=== PATIENT | female | born 1970 | race Caucasian/White ===

== ENCOUNTER → 2018-10-18 | Outpatient (CLI) | payer OTHER ==
--- NOTE | 2018-10-18 15:18 | XR ---
Left knee HISTORY: Left knee pain 3 views of the left knee There is joint space loss especially in the medial compartment with minimal spurring. Alignment, bone mineralization are normal. No evident joint effusion. IMPRESSION: Suspect some mild osteoarthritis.
== END | disposition home or self-care (01) ==
LOC: RADXRMAIN 12:01
PROVIDERS: ATTEND Family Medicine
DX: M25.562 Pain in left knee (principal)

== ENCOUNTER → 2020-12-14 | Outpatient (CLI) | payer OTHER ==
--- NOTE | 2020-12-18 10:19 | MM ---
Reason for exam: screening (asymptomatic). History: Family history of breast cancer in 2 cousins. Took hormonal contraceptives for 2 months. Physical Findings: A clinical breast exam by your physician is recommended on an annual basis and results should be correlated with mammographic findings. MG 3D Screening Mammo W/Cad Bilateral CC and MLO view(s) were taken. No prior studies available for comparison. The breast tissue is heterogeneously dense. This may lower the sensitivity of mammography. Partially obscured nodularity anterior right CC view. Benign foci of fat necrosis calcifications on the left. Central and lateral asymmetric densities left CC view incompletely disperse on 3D. ASSESSMENT: Incomplete: need additional imaging evaluation, BI-RAD 0 RECOMMENDATION: Special view mammogram of both breasts. (3D) If lesion persists on supplemental views, image directed ultrasound is recommended. [facility] will attempt to contact patient to return for supplemental views and ultrasound if indicated.
== END | disposition home or self-care (01) ==
LOC: RADMAMWWP 15:46
PROVIDERS: ATTEND Obstetrics & Gynecology
DX: Z12.31 Encounter for screening mammogram for malignant neoplasm of breast (principal)
CPT/HCPCS: 77063; 77067

== ENCOUNTER → 2020-12-24 | Outpatient (CLI) | payer OTHER ==
--- NOTE | 2020-12-25 08:44 | MM ---
Reason for exam: additional evaluation requested from abnormal screening. Last mammogram was performed less than 1 month ago. History: Family history of breast cancer in 2 cousins. Took hormonal contraceptives for 2 months. Physical Findings: Nurse did not find any significant physical abnormalities on exam. MG 3D Work Up W/Cad SHEEBA Bilateral spot compression CC and LM view(s) were taken. Spot compression MLO view(s) were taken of the left breast. Prior study comparison: December 14, 2020, bilateral MG 3d screening mammo w/cad. The breast tissue is heterogeneously dense. This may lower the sensitivity of mammography. The bilateral asymmetric densities disperse on additional views. These results were verbally communicated with the patient and result sheet given to the patient on 12/24/20. ASSESSMENT: Negative, BI-RAD 1 RECOMMENDATION: Return to routine screening mammogram schedule for both breasts.
== END | disposition home or self-care (01) ==
LOC: RADMAMWWP 14:33
PROVIDERS: ATTEND Obstetrics & Gynecology
DX: R92.8 Other abnormal and inconclusive findings on diagnostic imaging of breast (principal)
CPT/HCPCS: 77062; 77066

== ENCOUNTER 2024-04-18 13:06 | Observation (INO) | payer OTHER ==
[2024-04-18 13:28] LABS: Glucose,Whole Blood 90 mg/dL (70-110)
--- NOTE | 2024-04-18 13:28 | ED ---
General Adult HPI - General Chief complaint: Neuro Symptoms/Deficit Stated complaint: Numbness, stroke like symptoms Time Seen by Provider: 04/18/24 13:18 Source: patient, family, RN notes reviewed, old records reviewed Mode of arrival: wheelchair Limitations: no limitations - History of Present Illness Initial comments: 53-year-old female presenting with word finding difficulty and abnormal speech. Patient symptoms began at approximately 1230. She was unable to order her lunch from a restaurant she was unable to speak coherently. She also noted some numbness to the right hand and right side of her face. Symptoms have nearly completely resolved although her indicates that her speech does sound somewhat off currently. She denies limb weakness at this time. Denies previous history of CVA. - Related Data Home Medications Medication Instructions Recorded Confirmed Progesterone, Micronized 200 mg PO HS 04/18/24 04/18/24 [Progesterone] Allergies Allergy/AdvReac Type Severity Reaction Status Date / Time No Known Allergies Allergy Verified 04/18/24 14:23 Review of Systems ROS Statement: Those systems with pertinent positive or pertinent negative responses have been documented in the HPI. ROS Other: All systems not noted in ROS Statement are negative. Past Medical History Past Psychological History: No Psychological Hx Reported Smoking Status: Never smoker Past Alcohol Use History: None Reported Past Drug Use History: None Reported General Exam Limitations: no limitations General appearance: alert, in no apparent distress Head exam: Present: atraumatic, normocephalic Eye exam: Present: normal appearance, PERRL ENT exam: Present: normal exam Neck exam: Present: normal inspection. Absent: tenderness, meningismus Respiratory exam: Present: normal lung sounds bilaterally. Absent: respiratory distress, wheezes Cardiovascular Exam: Present: regular rate, normal rhythm GI/Abdominal exam: Present: soft. Absent: distended, tenderness Extremities exam: Present: normal inspection, normal capillary refill. Absent: pedal edema, joint swelling Back exam: Present: normal inspection Neurological exam: Present: alert, oriented X3, motor sensory deficit (Mild dysarthria, no expressive aphasia, no limb weakness, strength is 5 out of 5 in all extremities, current NIH is 1) Psychiatric exam: Present: anxious Skin exam: Present: warm, dry, intact. Absent: cyanosis, diaphoretic Course Vital Signs 04/18/24 13:08 Temperature 97.7 F Pulse Rate 84 Respiratory 16 Rate Blood Pressure 179/100 O2 Sat by Pulse 97 Oximetry - Reevaluation(s) Reevaluation #1: 04/18/24 [address] Alvarado, recommends medical management, not a tPA or thrombectomy candidate due to rapid resolution in symptoms and low NIH. Medical Decision Making - Medical Decision Making Was pt. sent in by a medical professional or institution (, PA, CAR LUBRICATOR, urgent care, hospital, or [facility]...) When possible be specific @ -No Did you speak to anyone other than the patient for history (EMS, parent, family, police, friend...)? What history was obtained from this source @ -Additional history from the patient's who is at bedside Did you review nursing and triage notes (agree or disagree)? Why? @ -I reviewed and agree with nursing and triage notes Were old charts reviewed (outside hosp., previous admission, EMS record, old EKG, old radiological studies, urgent care reports/EKG's, [facility] records)? Report findings @ -No old charts were reviewed Differential CVA Ischemic stroke, hemorrhagic stroke, brain tumor, atypical migraine, Wernicke's encephalopathy, seizure, multiple sclerosis, meningitis, encephalitis, hypoglycemia, Guillain-Marie, electrolytes disturbance, myasthenia gravis.... This is not meant to be an all-inclusive list EKG interpreted by me (3pts min.). @EKG: Sinus rhythm rate of 90, RI interval 144, QRS duration 97, QTc [address] segment elevation. X-rays interpreted by me (1pt min.). @ -Chest x-ray negative for acute cardiopulmonary findings. CT interpreted by me (1pt min.). @CT brain without contrast negative for intracranial hemorrhage or mass effect, CT angiography negative for acute stenosis or occlusion. U/S interpreted by me (1pt. min.). @ -None done What testing was considered but not performed or refused? (CT, X-rays, U/S, labs)? Why? @ -None What meds were considered but not given or refused? Why? @ -None Did you discuss the management of the patient with other professionals (p rofessionals i.e. , TALYA, CAR LUBRICATOR, lab, RT, psych nurse, social services analyst, tight barrel inspector, teacher, ground intelligence officer, caser in)? Give summary @This was a stroke activation, case discussed with Dr. Alvarado, and case discussed with Dr. Alonzo who will admit. Was smoking cessation discussed for >3mins.? @ -No Was critical care preformed (if so, how long)? @ -No Were there social determinants of health that impacted care today? How? (Homelessness, low income, unemployed, alcoholism, drug addiction, transport ation, low edu. Level, literacy, decrease access to med. care, custodial, rehab)? @ -No Was there de-escalation of care discussed even if they declined (Discuss DNR or withdrawal of care, Hospice)? DNR status @ -No What co-morbidities impacted this encounter? (DM, HTN, Smoking, COPD, CAD, Cancer, CVA, ARF, Chemo, Hep., AIDS, mental health diagnosis, sleep apnea, morbid obesity)? @ -None Was patient admitted / discharged? Hospital course, mention meds given and route, prescriptions, significant lab abnormalities, going to OR and other pertinent info. @ -53-year-old female with symptoms suggestive of acute CVA. Patient is a stroke activation. She is taken immediately to CT and CT angiography. CT imaging is negative in the emergency department. Patient's symptoms completely resolved consistent with TIA. She will be admitted with neurology on consult for further evaluation, MRI has been ordered. Undiagnosed new problem with uncertain prognosis? @ -No Drug Therapy requiring intensive monitoring for toxicity (Heparin, Nitro, Insulin, Cardizem)? @ -No Were any procedures done? @ -No Diagnosis/symptom? @ -TIA Acute, or Chronic, or Acute on Chronic? @ -[Acute Uncomplicated (without systemic symptoms) or Complicated (systemic symptoms)? @ -Default Side effects of treatment? @ -No Exacerbation, Progression, or Severe Exacerbation? @ -No Poses a threat to life or bodily function? How? (Chest pain, USA, OR, pneumonia, PE, COPD, DKA, ARF, appy, cholecystitis, CVA, Diverticulitis, Homicidal, Suicidal, threat to staff... and all critical care pts) @ -[Yes, CVA - Lab Data Result diagrams: 04/18/24 13:30 04/18/24 13:30 Lab Results 04/18/24 04/18/24 04/18/24 Range/Units 13:26 13:30 13:30 WBC 5.2 (3.8-10.6) k/uL RBC 5.41 H (3.80-5.40) m/uL Hgb 15.8 (11.4-16.0) gm/dL Hct 47.6 H (34.0-46.0) % MCV 88.0 (80.0-100.0) fL MCH 29.2 (25.0-35.0) pg MCHC 33.2 (31.0-37.0) g/dL RDW 13.8 (11.5-15.5) % Plt Count 184 (150-450) k/uL MPV 7.1 Neutrophils % 58 % Lymphocytes % 21 % Monocytes % 7 % Eosinophils % 8 % Basophils % 1 % Neutrophils # 3.0 (1.3-7.7) k/uL Lymphocytes # 1.1 (1.0-4.8) k/uL Monocytes # 0.4 (0-1.0) k/uL Eosinophils # 0.4 (0-0.7) k/uL Basophils # 0.0 (0-0.2) k/uL Manual Slide Review Performed PT 10.1 (10.0-12.5) sec INR 0.9 (<1.2) APTT 23.6 (22.0-30.0) sec Sodium (137-145) mmol/L Potassium (3.5-5.1) mmol/L Chloride (98-107) mmol/L Carbon Dioxide (22-30) mmol/L Anion Gap mmol/L BUN (7-17) mg/dL Creatinine (0.52-1.04) mg/dL Est GFR (CKD-EPI)AfAm (>60 ml/min/1.73 sqM) Est GFR (CKD-EPI)NonAf (>60 ml/min/1.73 sqM) Glucose (74-99) mg/dL POC Glucose (mg/dL) 90 (70-110) mg/dL POC Glu [facility] Leonidas Velez Calcium (8.4-10.2) mg/dL Total Bilirubin (0.2-1.3) mg/dL AST (14-36) U/L ALT (4-34) U/L Alkaline Phosphatase (38-126) U/L Troponin I (0.000-0.034) ng/mL Total Protein (6.3-8.2) g/dL Albumin (3.5-5.0) g/dL 04/18/24 04/18/24 Range/Units 13:30 13:30 WBC (3.8-10.6) k/uL RBC (3.80-5.40) m/uL Hgb (11.4-16.0) gm/dL Hct (34.0-46.0) % MCV (80.0-100.0) fL MCH (25.0-35.0) pg MCHC (31.0-37.0) g/dL RDW (11.5-15.5) % Plt Count (150-450) k/uL MPV Neutrophils % % Lymphocytes % % Monocytes % % Eosinophils % % Basophils % % Neutrophils # (1.3-7.7) k/uL Lymphocytes # (1.0-4.8) k/uL Monocytes # (0-1.0) k/uL Eosinophils # (0-0.7) k/uL Basophils # (0-0.2) k/uL Manual Slide Review PT (10.0-12.5) sec INR (<1.2) APTT (22.0-30.0) sec Sodium 137 (137-145) mmol/L Potassium 3.9 (3.5-5.1) mmol/L Chloride 106 (98-107) mmol/L Carbon Dioxide 22 (22-30) mmol/L Anion Gap 9 mmol/L BUN 16 (7-17) mg/dL Creatinine 0.52 (0.52-1.04) mg/dL Est GFR (CKD-EPI)AfAm >90 (>60 ml/min/1.73 sqM) Est GFR (CKD-EPI)NonAf >90 (>60 ml/min/1.73 sqM) Glucose 90 (74-99) mg/dL POC Glucose (mg/dL) (70-110) mg/dL POC Glu [facility] A[facility] ID Calcium 9.4 (8.4-10.2) mg/dL Total Bilirubin 0.9 (0.2-1.3) mg/dL AST 58 H (14-36) U/L ALT 99 H (4-34) U/L Alkaline Phosphatase 76 (38-126) U/L Troponin I <0.012 (0.000-0.034) ng/mL Total Protein 7.1 (6.3-8.2) g/dL Albumin 4.5 (3.5-5.0) g/dL Disposition Clinical Impression: Transient cerebral ischemia Disposition: ADMITTED IP TO THIS HOSP Condition: Stable Is patient prescribed a controlled substance at d/c from ED?: No Referrals: Som Watkins MD [Primary Care Provider] - 1-2 days Time of Disposition: 15:11
[2024-04-18 13:52] LABS: Basophils % (A) 1 %; Eosinophils % (A) 8 %; HCT 47.6 % (34.0-46.0); HGB 15.8 gm/dL (11.4-16.0); Lymphocytes # (A) 1.1 k/uL (1.0-4.8); Lymphocytes % (A) 21 %; MCH 29.2 pg (25.0-35.0); MCHC 33.2 g/dL (31.0-37.0); Mean Platelet Volume 7.1; Monocytes # (A) 0.4 k/uL (0-1.0); Monocytes % (A) 7 %; Neutrophils % (A) 58 %; Platelet Count 184 k/uL (150-450); RBC 5.41 m/uL (3.80-5.40); RDW 13.8 % (11.5-15.5); WBC 5.2 k/uL (3.8-10.6)
[2024-04-18 13:53] LABS: Eosinophils # (A) 0.4 k/uL (0-0.7)
[2024-04-18 13:54] LABS: INR 0.9 (<1.2); Partial Thromboplastin Time 23.6 sec (22.0-30.0); Prothrombin Time 10.1 sec (10.0-12.5)
--- NOTE | 2024-04-18 13:55 | CT ---
EXAMINATION TYPE: CT brain wo con CT DLP: 1074.6 mGycm, Automated exposure control for dose reduction was used. DATE OF EXAM: 04/18/2024 1:38 PM COMPARISON: None. CLINICAL INDICATION:Female, 53 years old with history of Neuro deficit, acute, stroke suspected, righ t arm weakness, r/o stroke TECHNIQUE: Brain: Axial CT images of the brain were obtained with coronal and sagittal reformats created and rev iewed. Contrast used: None. Oral contrast used: None. FINDINGS: Brain: Extra-axial spaces: No abnormal extra-axial fluid collections. Ventricular system: Within normal limits Cerebral parenchyma: No acute intraparenchymal hemorrhage or mass effect. The enriquez-white junction is well differentiated. Cerebellum: Unremarkable. Mass effect: No evidence of midline shift. Intracranial vasculature: unremarkable Soft tissues: Normal. Calvarium/osseous structures: No depressed skull fracture. Paranasal sinuses and mastoid air cells: Mild scattered paranasal sinus disease. Visualized orbits: Orbital contents are intact. IMPRESSION: No acute intracranial process.
--- NOTE | 2024-04-18 14:06 | CT ---
EXAMINATION TYPE: CT angio head neck CT DLP: 563.2 mGycm, Automated exposure control for dose reduction was used. DATE OF EXAM: 04/18/2024 1:54 PM COMPARISON: CT same day. CLINICAL INDICATION:Female, 53 years old with history of Neuro deficit, acute, stroke suspected; PHH, right arm weakness, r/o stroke TECHNIQUE: Axially acquired helical CT angiogram of the head and neck was obtained with contrast. Axi al images are supplemented with 3D reconstructions and MIP images which were post-processed at an in dependent workstation. NASCET criteria used. Contrast used:65 mL of Isovue 370 with IV Contrast, Oral contrast used: None. FINDINGS: CTA HEAD: No evidence of acute intracranial hemorrhage, mass effect, or midline shift. The ventricles, sulci, a nd cisterns are unremarkable. The visualized portions of the internal carotid arteries, middle cerebral arteries, anterior cerebral arteries, and posterior cerebral arteries are patent. The basilar and vertebral arteries are patent. CTA NECK: Right Carotid System: The common carotid artery and external carotid artery are patent. The carotid bifurcation demonstrate s no evidence of hemodynamically significant stenosis. The remaining portions of the internal carotid artery demonstrate normal size without significant narrowing. Left Carotid System: The common carotid artery and external carotid artery are patent. The carotid bifurcation demonstrate s no evidence of hemodynamically significant stenosis. The remaining portions of the internal carotid artery demonstrate normal size without significant narrowing. Vertebral arteries are patent without evidence hemodynamically significant stenosis. There is a three-vessel aortic arch. The origins of the great vessels are patent. No evidence of hemo dynamically significant stenosis. Upper thorax: Enlarged lymph nodes are seen in the axilla/subpectoral region bilaterally measuring up to 10 mm in short axis bilaterally. Prominent mediastinal lymph nodes are visualized including AP wi ndow lymph node measuring up to 8 mm in short axis. Prevascular space lymph node measuring up to 10 m m in short axis. IMPRESSION: 1. No evidence of dissection of the cervical internal carotid arteries or vertebral arteries or any e vidence of significant stenosis at the carotid bifurcations. 2. No evidence of intracranial high-grade stenosis or intracranial aneurysm. 3. Lymphadenopathy in the upper thorax partially visualized. Correlate patient's clinical history. Co nsider further evaluation for source of lymphadenopathy.
[2024-04-18 14:16] LABS: ALT 99 U/L (4-34); AST 58 U/L (14-36); African American GFR (CKD) >90 (>60 ml/min/1.73 sqM); Albumin 4.5 g/dL (3.5-5.0); Alkaline Phosphatase 76 U/L (38-126); Anion Gap 9 mmol/L; Blood Urea Nitrogen 16 mg/dL (7-17); Calcium 9.4 mg/dL (8.4-10.2); Carbon Dioxide 22 mmol/L (22-30); Chloride 106 mmol/L (98-107); Glucose 90 mg/dL (74-99); Non-African American GFR(CKD) >90 (>60 ml/min/1.73 sqM); Potassium 3.9 mmol/L (3.5-5.1); Sodium 137 mmol/L (137-145); Total Bilirubin 0.9 mg/dL (0.2-1.3); Total Protein 7.1 g/dL (6.3-8.2)
[2024-04-18] MEDS: SODIUM CHLORIDE 0.9% 1,000 ML IV ONE (14:26)
--- NOTE | 2024-04-18 14:39 | XR ---
EXAMINATION TYPE: XR chest 1V portable DATE OF EXAM: 04/18/2024 2:18 PM CLINICAL INDICATION:Female, 53 years old with history of altered mental status; [facility] COMPARISON: None TECHNIQUE: XR chest 1V portable Frontal view of the chest. FINDINGS: Lungs/Pleura: There is no evidence of pleural effusion, focal consolidation, or pneumothorax. Pulmonary vascularity: Unremarkable. Heart/mediastinum: Cardiomediastinal silhouette is unremarkable. Musculoskeletal: No acute osseous pathology. IMPRESSION: No acute cardiopulmonary disease/process.
[2024-04-18] MEDS: ASPIRIN 325 MG TAB PO STA (16:23)
[2024-04-18] MEDS: ATORVASTATIN 80 MG TAB PO SCH (21:07)
[2024-04-18] MEDS: ACETAMINOPHEN TAB 325 MG TAB PO PRN (23:49)
--- NOTE | 2024-04-19 00:35 | P.HPIM ---
History of Present Illness H&P Date: 04/18/24 Chief Complaint: Difficulty speech and right arm numbness Patient is a 53-year-old female with no significant past medical history presents to ER with complaints of Difficulty finding words and slurred speech. Patient states that around 11 AM while she was working on the computer she noticed to have visual changes. Abdomen 1230 to 1 PM she tried to order from the images and suddenly noted to have slurred speech and trouble finding words. Patient also numbness of the right upper extremity/arm. Patient also felt slightly weak. Patient called her who drove her to the hospital. She was also noticed to have left facial droopiness when she was in the ER. Cur rently still having upper lip numbness otherwise symptoms are improving. Denies any chest pain or shortness of breath. No fever no chills. Denies any recent illnesses. No palpitations. No headache or dizziness or lightheadedness. Denies any lower extremity weakness. No prior history of CVA/TIA. CT head showed no acute intracranial process. CT angiogram of the head and neck no evidence of dissection of the cervical internal carotid arteries or vertebral arteries or any evidence for significant stenosis at the carotid bifurcations. Lymphadenopathy in the upper thorax partially visualized. Correlate patient's clinical history. Consider further evaluation of source of lymphadenopathy. EKG showed normal sinus rhythm Laboratory data showed WBC 5.2, hemoglobin 15.8 and platelets 184, sodium 137 potassium 3.7 chloride 106 bicarbonate 22 BUN 16 creatinine 0.52 and blood sugar 90 AST 58 ALT 19 alk phos 76 and troponin x 1 negative. Albumin 4.5 Review of Systems Constitutional: Patient denies any fever or chills . No generalized weakness or weight loss. Abdomen: Patient denied nausea vomiting and diarrhea and abdominal pain. Cardiovascular: Patient denies any chest pain or short of breath no palpitations. Respiratory: patient denied any cough is from production. No shortness of breath Neurologic: Patient denied any numbness or tingling headache. Musculoskeletal: Patient denies any complaints of joint swelling or deformity. Skin: Negative Psychiatric: Negative Endocrine: No heat or cold intolerance. No recent weight gain. Genitourinary: No dysuria or hematuria. All other 14 point ROS negative except the above Past Medical History Past Psychological History: No Psychological Hx Reported Smoking Status: Never smoker Past Alcohol Use History: None Reported Past Drug Use History: None Reported Medications and Allergies Home Medications Medication Instructions Recorded Confirmed Type Progesterone, Micronized 200 mg PO HS 04/18/24 04/18/24 History [Progesterone] Allergies Allergy/AdvReac Type Severity Reaction Status Date / Time No Known Allergies Allergy Verified 04/18/24 14:23 Physical Exam Vitals: Vital Signs Temp Pulse Resp BP Pulse Ox 04/18/24 16:00 84 16 145/82 99 04/18/24 13:08 97.7 F 84 16 179/100 97 Intake and Output 04/18/24 04/18/24 04/18/24 06:59 14:59 22:59 Other: Weight 99.79 kg PHYSICAL EXAMINATION: Patient is lying in the bed comfortably, no acute distress, awake alert and oriented.. HEENT: Normocephalic. Neck is supple. Pupils reactive. Nostrils clear. Oral cavity is moist. Neck reveals no JVD, carotid bruits, or thyromegaly. CHEST EXAMINATION: Trachea is central. Symmetrical expansion. Lung horner clear to auscultation and percussion. CARDIAC: Normal S1, S2 with no gallops. No murmurs ABDOMEN: Soft. Bowel sounds normal. No organomegaly. No abdominal bruits. Extremities: reveal no edema. No clubbing or cyanosis Neurologically awake, alert, oriented x3 with well-coordinated movements. No focal deficits noted Skin: No rash or skin lesions. Psychiatric: Coperative. Nonsuicidal Musculoskeletal: No joint swelling or deformity. Normal range of motion. Results CBC & Chem 7: 04/18/24 13:30 04/18/24 13:30 Labs: Abnormal Lab Results - Last 24 Hours (Table) 04/18/24 04/18/24 Range/Units 13:30 13:30 RBC 5.41 H (3.80-5.40) m/uL Hct 47.6 H (34.0-46.0) % AST 58 H (14-36) U/L ALT 99 H (4-34) U/L Thrombosis Risk Factor Assmnt - DVT/VTE Prophylaxis DVT/VTE Prophylaxis: Pharmacologic Prophylaxis ordered Assessment and Plan Assessment: Right arm numbness, difficulty finding words and slurred speech. Symptoms are improving. Likely due to TIA. Upper thorax lymphadenopathy Elevated blood pressure GERD prophylaxis. Plan: Patient was given a dose of aspirin in the ER. Follow-up lipid panel. MRI of the brain was ordered and neurology is on board. 2D echocardiogram rule out PFO. Follow-up TSH B12 and folate levels. Discussed the patient and family at bedside in detail. Continue to follow closely. Time with Patient: Greater than 30
--- NOTE | 2024-04-19 09:02 | P.HPIM ---
History of Present Illness H&P Date: 04/19/24 Chief Complaint: Strokelike symptoms This is a 53-year-old female who presented to the emergency department with complaints of difficulty finding her words and abnormal speech. Patient was at work and had been on her computer for a while and then went to make a call and she could not speak coherently. Her brought her to the emergency room for evaluation. On her way to the ER she reported some right arm numbness and numbness to the right side of her face. When she got to the ER her symptoms have mostly resolved. Imaging has been negative so far. Neurology has been consulted and an MRI has been ordered for today. Patient is a non-smoker. Denies any significant medical history. Patient seen today sitting up in bed. Strength is equal in all extremities, reports she is feeling back to normal. Review of Systems Constitutional: Denies chills, Denies fever Cardiovascular: Denies chest pain, Denies dyspnea on exertion Respiratory: Denies cough, Denies dyspnea Gastrointestinal: Denies abdominal pain, Denies nausea, Denies vomiting Musculoskeletal: Reports arm numbness/tingling, Denies leg numbness/tingling Neurological: Reports aphasia, Denies headaches, Denies numbness Past Medical History History of Any Multi-Drug Resistant Organisms: None Reported Past Surgical History: Section, Tonsillectomy Past Psychological History: No Psychological Hx Reported Smoking Status: Never smoker Past Alcohol Use History: None Reported Past Drug Use History: None Reported Medications and Allergies Home Medications Medication Instructions Recorded Confirmed Type Progesterone, Micronized 200 mg PO HS 04/18/24 04/18/24 History [Progesterone] Allergies Allergy/AdvReac Type Severity Reaction Status Date / Time No Known Allergies Allergy Verified 04/18/24 14:23 Physical Exam Vitals: Vital Signs Temp Pulse Pulse Resp BP BP Pulse Ox 04/19/24 08:25 97.6 F 75 16 142/80 96 04/19/24 04:00 69 16 138/82 99 04/19/24 00:00 97.9 F 88 17 137/76 99 04/18/24 21:57 98 F 78 16 145/85 97 04/18/24 20:00 87 18 159/84 99 04/18/24 17:58 87 18 151/82 97 04/18/24 16:00 84 16 145/82 99 05/20/24 13:08 97.7 F 84 16 179/100 97 Intake and Output 04/18/24 04/19/24 04/19/24 22:59 06:59 14:59 Other: Voiding Method Toilet Toilet # Voids 1 2 Weight 98.2 kg - Constitutional General appearance: cooperative, no no acute distress - EENT Eyes: PERRLA - Neck Neck: no lymphadenopathy, normal ROM, no rigidity - Respiratory Respiratory: bilateral: CTA - Cardiovascular PVCs Rhythm: regular Heart sounds: normal: S1, S2 - Gastrointestinal General gastrointestinal: soft, no tenderness - Neurologic Neurologic: CNII-XII intact - Musculoskeletal Musculoskeletal: strength equal bilaterally - Psychiatric Psychiatric: A&O x's 3, appropriate affect, intact judgment & insight Results CBC & Chem 7: 04/18/24 13:30 04/18/24 13:30 Labs: Abnormal Lab Results - Last 24 Hours (Table) 04/18/24 04/18/24 Range/Units 13:30 13:30 RBC 5.41 H (3.80-5.40) m/uL Hct 47.6 H (34.0-46.0) % AST 58 H (14-36) U/L ALT 99 H (4-34) U/L Thrombosis Risk Factor Assmnt - Choose All That Apply Any of the Below Risk Factors Present?: Yes Each Factor Represents 1 point: Age 41-60 years Other Risk Factors: No Other congenital or acquired thrombophilia - If yes, enter type in comment: No Thrombosis Risk Factor Assessment Total Risk Factor Score: 1 Thrombosis Risk Factor Assessment Level: Low Risk Assessment and Plan (1) Transient cerebral ischemia Current Visit: Yes Status: Acute Code(s): G45.9 - TRANSIENT CEREBRAL ISCHEMIC ATTACK, UNSPECIFIED SNOMED Code(s): 358140396 Plan: Await for results of MRI. Appreciate recommendations from neurology. Patient seen and evaluated by nurse practitioner, physician in agreement with plan
[2024-04-19] MEDS: ASCORBIC ACID 500 MG TAB PO SCH (09:42)
[2024-04-19] MEDS: CHOLECALCIFEROL 25 MCG (1000 IU) TABLET PO SCH (09:42)
[2024-04-19] MEDS: HEPARIN SODIUM,PORCINE 5,000 UNIT/ML 1 ML VIAL SQ SCH (10:41)
[2024-04-19 10:58] LABS: Basophils % (A) 1 %; Eosinophils # (A) 0.5 k/uL (0-0.7); Eosinophils % (A) 10 %; HCT 46.1 % (34.0-46.0); HGB 14.9 gm/dL (11.4-16.0); Lymphocytes # (A) 0.8 k/uL (1.0-4.8); Lymphocytes % (A) 19 %; MCH 28.4 pg (25.0-35.0); MCHC 32.3 g/dL (31.0-37.0); MCV 87.8 fL (80.0-100.0); Mean Platelet Volume 7.2; Monocytes # (A) 0.3 k/uL (0-1.0); Monocytes % (A) 8 %; Neutrophils # (A) 2.6 k/uL (1.3-7.7); Neutrophils % (A) 60 %; Platelet Count 190 k/uL (150-450); RBC 5.25 m/uL (3.80-5.40); RDW 13.8 % (11.5-15.5); WBC 4.4 k/uL (3.8-10.6)
[2024-04-19 11:30] LABS: ALT 80 U/L (4-34); AST 48 U/L (14-36); African American GFR (CKD) >90 (>60 ml/min/1.73 sqM); Albumin 4.1 g/dL (3.5-5.0); Alkaline Phosphatase 65 U/L (38-126); Anion Gap 6 mmol/L; Blood Urea Nitrogen 13 mg/dL (7-17); Carbon Dioxide 22 mmol/L (22-30); Chloride 109 mmol/L (98-107); Glucose 100 mg/dL (74-99); Non-African American GFR(CKD) >90 (>60 ml/min/1.73 sqM); Potassium 4.2 mmol/L (3.5-5.1); Sodium 137 mmol/L (137-145); Total Bilirubin 0.8 mg/dL (0.2-1.3); Total Protein 6.4 g/dL (6.3-8.2)
--- NOTE | 2024-04-19 11:49 | P.CNNES ---
History of Present Illness Consult date: 04/19/24 Requesting physician: Johny Hodge Reason for Consult: 04/19/2024 History of Present Illness: This is a 53 year-old woman who is fairly healthy who presents because of vision changes, speech difficulty and numbness and tingling of right arm. She states yesterday at around 11am she was on computer and noticed she is having blurry vision on right lateral side and took more than a couple minutes then resolved then at 12-12:30pm she was on phone and noticed she was having difficulty getting her words out. She knew what she wanted to say but had hard time saying. Then lateral right hand/forearm and face is numb. She had no further symptoms by 1:30pm yesterday. Patient denies history of stroke in the past, denies any medical issues in the past. She is on multivitamin as well as progesterone for her menopause but otherwise is not on any antiplatelet. She denies any history of atrial fibrillation. Denies any hypercoagulable issues in the past. Currently she feels back to baseline. She denies any family history of stroke at this age but mother had stroke in her 70's years old. Patient denies tobacco use or illicit drug use. She socially drink alcohol and it is rare. Some of the work-up consisted of: Blood pressure on presentation is 179/100 Sodium is 137 AST is 58, ALT [address] head is reported as no acute intracranial process. I personally reviewed MRI and agree with report. CTA head and neck is reported as no evidence of dissection of the cervical internal carotid arteries or vertebral arteries or any evidence of significant stenosis at the carotid bifurcation. No evidence of intracranial high-grade stenosis or intracranial aneurysm. Lymphadenopathy in the upper thorax partially visualized. Correlate patient's clinical history. Patient's symptoms has resolved therefore no IV thrombolytics since the risk outweigh benefit. Review of Systems Review of system: The 12 point system was reviewed and apparent positive and negative per HPI. Past Medical History History of Any Multi-Drug Resistant Organisms: None Reported Past Surgical History: Section, Tonsillectomy Past Psychological History: No Psychological Hx Reported Smoking Status: Never smoker Past Alcohol Use History: None Reported Past Drug Use History: None Reported Medications and Allergies Home Medications Medication Instructions Recorded Confirmed Type Progesterone, Micronized 200 mg PO HS 04/18/24 04/18/24 History [Progesterone] Allergies Allergy/AdvReac Type Severity Reaction Status Date / Time No Known Allergies Allergy Verified 04/18/24 14:23 Physical Examination - Vital Signs Vital Signs: Vital Signs Temp Pulse Pulse Resp BP BP Pulse Ox 04/19/24 08:25 97.6 F 75 16 142/80 96 04/19/24 04:00 69 16 138/82 99 04/19/24 00:00 97.9 F 88 17 137/76 99 04/18/24 21:57 98 F 78 16 145/85 97 04/18/24 20:00 87 18 159/84 99 04/18/24 17:58 87 18 151/82 97 04/18/24 16:00 84 16 145/82 99 04/18/24 13:08 97.7 F 84 16 179/100 97 Intake and Output 04/18/24 04/19/24 04/19/24 22:59 06:59 14:59 Intake Total 10 Balance 10 Intake: IV 10 Invasive Line 1 10 Other: Voiding Method Toilet Toilet Toilet # Voids 1 2 Weight 98.2 kg GENERAL: The patient is lying in bed and is not in acute distress. NEUROLOGICAL: Higher mental function: The patient is awake, alert, oriented to self, place and time. Patient is following commands. No aphasia and no neglect. Cranial nerves: The pupils are round, equal and reactive to light and accommodation. Visual horner are full to confrontation throughout. Extraocular movement is intact no nystagmus is noted. Facial sensation is normal to touch throughout. The facial strength is normal throughout. Hearing is normal bi laterally to hand rub. Tongue is midline and moved [id number] without any difficulty. No dysarthria is noted. Shoulder shrug is normal bilaterally. Motor: The strength is 5 over 5 throughout. Normal tone and bulk. Cerebellum: Normal finger to nose heel to valdes bilaterally. Sensation: Sensation is normal to touch throughout. Reflexes (right/left): 2+ throughout. Plantars are downgoing bilaterally. Results - Laboratory Findings CBC and BMP: 04/19/24 10:35 04/19/24 10:35 Abnormal Lab Findings: Abnormal Labs 04/18/24 04/18/24 04/19/24 13:30 13:30 10:35 RBC 5.41 H Hct 47.6 H 46.1 H Lymphocytes # 0.8 L AST 58 H ALT 99 H Assessment and Plan Assessment: This is a 53-year-old woman who presents to the emergency department on 04/18/2024 because of blurry vision over the right lateral half that started around 11 AM then shortly after she noticed she is having speech difficulty and her speech where it was coming out wrong and then later she noticed numbness over the right arm hand and face at all her symptoms resolved by 1:30 PM. Transient visual disturbance, expressive aphasia and numbness over the right upper extremity and face is likely transient ischemic attack. New onset hypertension on presentation Plan: I started the patient on aspirin 325 mg daily, Plavix 75 mg daily. She was given aspirin 325 mg once in the ED. Prior to this she was not on any antiplatelet. Recommend dual antiplatelet for 21 days and after 21 days stop Plavix but continue aspirin indefinitely. She was started on Lipitor 80 mg nightly by the primary team. Pending MRI of the brain, 2D echo, lipid panel, TSH. Continue neurochecks Cardiac monitoring. Recommend a 30-day event monitor. PT OT and COMPENSATION/BENEFITS SPECIALIST are consulted Will defer the rest of the medical management to primary team and other specialists For DVT prophylaxis the patient is on subcu heparin 5000 units every 8 hours. Plan discussed with the patient and her at bedside. Also discussed with her nurse. Thank for the consultation Time with Patient: Greater than 30
--- NOTE | 2024-04-19 13:14 | MR ---
EXAMINATION TYPE: MR brain wo/w con DATE OF EXAM: 04/19/2024 COMPARISON: CT brain 04/18/2024 HISTORY: Speech difficulty, stroke CONTRAST: Performed utilizing 10 mL intravenous Gadavist gadolinium contrast. TECHNIQUE: Multiplanar, multiecho imaging on a 3.0 Kiana magnet is performed through the brain. Stud y is performed within 24 hours of arrival to the hospital. The craniovertebral junction is normal. The pituitary is normal. Diffusion-weighted imaging is performed. No abnormal hyperintensity is present to suggest an acute i ntracranial infarct or acute ischemic change. No acute infarcts identified. No subacute infarcts evid ent There are a few scattered subcortical white matter changes which are nonspecific. Differential diagno sis could include multiple sclerosis, migraine headaches, vasculitis among other etiologies. The larg est in the left centrum semiovale measures 0.7 cm in AP dimension Ventricles and sulci are appropriate for the patient age. Retention cyst is within the right maxillary sinus. Remaining paranasal sinuses are clear. Following intravenous administration of contrast, no abnormal enhancement is evident. IMPRESSION: 1. Scattered mild chronic appearing deep white matter ischemic-type changes. 2. No acute intracranial process evident.
--- NOTE | 2024-04-19 14:23 | CA ---
Transthoracic Echo Report Name: Nicole Lee Age: 53 Gender: F : 1970 Exam Date: 04/19/2024 09:46 Exam Location: [place] [facility] Ht (in): 69 Wt (lb): 220 Ordering Physician: Vu Quevedo MD Attending/Referring Phys: Patient Financial Services Manager Yoanna Zamudio RDCS Procedure CPT: Indications: stroke Cardiac Hx: Technical Quality: Technically difficult study Contrast 1: Definity Total Dose (mL): 2 Contrast 2: Agitated Saline Total Dose (mL): 10 MEASUREMENTS (Male / Female) Normal Values 2D ECHO LV Diastolic Diameter PLAX 4.3 cm 4.2 - 5.9 / 3.9 - 5.3 cm LV Systolic Diameter PLAX 2.8 cm IVS Diastolic Thickness 1.1 cm 0.6 - 1.0 / 0.6 - 0.9 cm LVPW Diastolic Thickness 0.9 cm 0.6 - 1.0 / 0.6 - 0.9 cm LV Relative Wall Thickness 0.5 RV Internal Dim ED PLAX 2.8 cm LVOT Diameter 2.0 cm LV Diastolic Volume MOD BP 144.9 cm??? 67 - 155 / 56 - 104 cm??? LV Systolic Volume MOD BP 49.3 cm??? 22 - 58 / 19 - 49 cm??? LV Ejection Fraction MOD BP 66.0 % >= 55 % LV Cardiac Index MOD BP 3334.5 cm???/min???m??? LV Diastolic Volume MOD 4C 150.7 cm??? LV Systolic Volume MOD 4C 58.6 cm??? LV Ejection Fraction MOD 4C 61.1 % LV Cardiac Index MOD 4C 3213.6 cm???/min???m??? LV Diastolic Length 4C 9.3 cm LV Systolic Length 4C 7.1 cm LV Diastolic Volume MOD 2C 129.1 cm??? LV Systolic Volume MOD 2C 38.0 cm??? LV Ejection Fraction MOD 2C 70.6 % LV Cardiac Index MOD 2C 3179.9 cm???/min???m??? LV Diastolic Length 2C 8.6 cm LV Systolic Length 2C 6.4 cm LA Volume 83.6 cm??? 18 - 58 / 22 - 52 cm??? LA Volume Index 37.4 cm???/m??? 16 - 28 cm???/m??? Ascending Aorta Diameter 3.5 cm DOPPLER AV Peak Velocity 168.9 cm/s AV Peak Gradient 11.4 mmHg AV Mean Velocity 119.7 cm/s AV Mean Gradient 6.4 mmHg AV Velocity Time Integral 36.9 cm LVOT Peak Velocity 144.3 cm/s LVOT Peak Gradient 8.3 mmHg LVOT Velocity Time Integral 28.4 cm LVOT Stroke Volume 91.8 cm??? LVOT Stroke Volume Index 42.7 ml/m??? LVOT Cardiac Index 3203.3 cm???/min???m??? AV Area Cont Eq vti 2.5 cm??? AV Area Cont Eq pk 2.8 cm??? MV Area PHT 3.1 cm??? Mitral E Point Velocity 83.4 cm/s Mitral A Point Velocity 96.2 cm/s Mitral E to A Ratio 0.9 MV Deceleration Time 248.6 ms PV Peak Velocity 106.0 cm/s PV Peak Gradient 4.5 mmHg FINDINGS Left Ventricle Left ventricular ejection fraction is estimated at 60-65 %. Mildly increased septal wall thickness. Severely increased left ventricular diastolic volume. No obvious regional wall motion abnormalities. Negative bubble study. Right Ventricle Normal right ventricular size and function. Unable to estimate the right ventricular systolic pressure. Right Atrium Normal right atrial size. Left Atrium Moderately increased left atrial volume. Mildly increased left atrial area. Mitral Valve Mitral valve thickened. No evidence for mitral valve prolapse. No mitral stenosis. Trace mitral regurgitation. Aortic Valve Trileaflet aortic valve. Diffuse thickening (sclerosis) of the aortic valve cusps without reduced excursion. No aortic valve stenosis or regurgitation. No obstruction at rest or with valsalva. Tricuspid Valve Tricuspid valve not well visualized. No tricuspid stenosis. Trace tricuspid regurgitation. Pulmonic Valve Structurally normal pulmonic valve. No pulmonic stenosis. No pulmonic regurgitation. Pericardium No pericardial effusion. Aorta Normal size aortic root and proximal ascending aorta. CONCLUSIONS Left ventricular ejection fraction 60-65% Mildly increased left ventricular wall thickness Mild to moderately dilated left atrium Trace mitral regurgitation Trace tricuspid regurgitation Negative bubble study Previewed by: Dr. Alex Campbell DO (Electronically Signed) Final Date: 19 Apr 2024 14:22
[2024-04-19] MEDS: ASPIRIN 325 MG TAB PO SCH (15:40)
[2024-04-19] MEDS: CLOPIDOGREL 75 MG TAB PO SCH (15:40)
[2024-04-19 16:28] LABS: Chol/HDL Ratio 4.35 Ratio
[2024-04-20 01:14] VITALS: RESP 16
[2024-04-20 07:00] VITALS: TEMP 98
--- NOTE | 2024-04-20 08:25 | P.DS ---
Providers Date of admission: 04/18/24 15:23 Attending physician: Som Watkins Consults: 04/18/24 15:07 Consult Physician Routine Consulting Provider: Vu Quevedo Consult Reason/Comments: TIA Do you want consulting provider notified?: Yes Primary care physician: Som Watkins [facility] Course: The patient is a 53-year-old white female who has had a history of aphasia. TIA was diagnosed and workup was done including MRI and echocardiogram. She did have symptoms resolved and she is not stable. No asymmetry of her strength or facial expression. The patient is discharged with stable condition with new m edication regimen. Prognosis was fully explained to the patient and she will follow-up with me in 1 week. Question new onset hypertension. Patient Condition at Discharge: Stable Plan - Discharge Summary Discharge Rx Participant: No New Discharge Prescriptions: New Aspirin 325 mg PO DAILY #90 tab Atorvastatin [Lipitor] 80 mg PO HS #90 tab Clopidogrel [Plavix] 75 mg PO DAILY #90 tab Ascorbic Acid [Vitamin C] 1,000 mg PO DAILY tab Cholecalciferol [Vitamin D3 (25 Mcg = 1000 Iu)] 50 mcg PO DAILY tab Continue Progesterone, Micronized [Progesterone] 200 mg PO HS Discharge Medication List Progesterone, Micronized [Progesterone] 200 mg PO HS 04/18/24 [History] Ascorbic Acid [Vitamin C] 1,000 mg PO DAILY tab 04/20/24 [Rx] Aspirin 325 mg PO DAILY #90 tab 04/20/24 [Rx] Atorvastatin [Lipitor] 80 mg PO HS #90 tab 04/20/24 [Rx] Cholecalciferol [Vitamin D3 (25 Mcg = 1000 Iu)] 50 mcg PO DAILY tab 04/20/24 [Rx] Clopidogrel [Plavix] 75 mg PO DAILY #90 tab 04/20/24 [Rx] Follow up Appointment(s)/Referral(s): Som Watkins MD [Primary Care Provider] - 3 Days
[2024-04-20 08:46] VITALS: BP 152/81; PULSE 82
== END 2024-04-20 10:51 | disposition home or self-care (01) ==
LOC: EC 13:06 → 3SCARD 15:23
PROVIDERS: ADMIT Family Medicine; ATTEND Family Medicine
DX: G45.9 Transient cerebral ischemic attack, unspecified (principal); R03.0 Elevated blood-pressure reading, without diagnosis of hypertension; R59.1 Generalized enlarged lymph nodes; K21.9 Gastro-esophageal reflux disease without esophagitis; Z78.0 Asymptomatic menopausal state; Z79.890 Hormone replacement therapy; Z82.3 Family history of stroke
CPT/HCPCS: 99285; 36415; 93005; 93306; 93270; 97161; 97166; 92523; 82747; 80061; 80053 ×2; 84443; 82607; 84484; 85025 ×2; 85610; 85730; 71045; 70496; 70450; 70498; 70553; G0378 ×3; Q9957; Q9967; A9585